=== PATIENT | male | born 1955 | race Caucasian/White ===

== ENCOUNTER 2016-10-25 23:10 | Inpatient (IN) | payer MEDICARE ==
--- NOTE | ~2016-10-25 | EKG ---
PATIENT: ALYSHA RODRIGUEZ UNIT #: [id number] Ventricular Rate: 98 BPM Atrial Rate: 98 BPM P-R Interval: 228 ms QRS Duration: 84 ms Q-T Interval: 352 ms QTC Calculation(Bezet): 449 ms P [place]: 48 degrees Calculated R [place]: -19 degrees Calculated T [place]: 35 degrees Diagnosis Line: Sinus rhythm with 1st degree A-V block Diagnosis Line: Otherwise normal ECG Diagnosis Line: When compared with ECG of 01-DEC-2013 17:52, Diagnosis Line: No significant change was found Diagnosis Line: Confirmed by JORGE ALLEN MD ([id number]) on 10/26/2016 Diagnosis Line: 11:16:15 PM INTERPRETING MD: ALEJANDRO OLSON
--- NOTE | ~2016-10-25 | CO ---
Unit #: [id number] #: [id number] Patient: ALYSHA RODRIGUEZ [id number] [place] [address] [facility]. [place], [place] [address] [id number] MR#: [id number] NAME: ALYSHA RODRIGUEZ. ROOM: 553 Age: 61 Sex: M Admission Date: 10/26/2016 : 1955 Attending Physician: Jayme Guan M.D. Primary Care Physician: Michael Spring M.D. CONSULTATION REPORT REASON FOR CONSULTATION Congestive heart failure. HISTORY OF PRESENT ILLNESS This is a 61-year-old white male, who was admitted with a complaint of abdominal discomfort. He was found to have a 2 mm right renal stone. The patient also reports shortness of breath with nonproductive cough and leg edema for the past two weeks. He also had a few episodes of "passing out spells." His details are sketchy. He is a poor historian and has been given pain medication. He has no symptoms of angina or palpitations. Because of his renal stones, he was receiving IV fluids at a high rate. He has obstructive sleep apnea and was on BiPAP at one point. He demonstrated hypoxic respiratory failure where he had low oxygen saturation levels. He is currently receiving supplemental oxygen. From a cardiac standpoint, the patient has risk factors for ischemic heart disease and includes hypertension, hyperlipidemia, diabetes, obesity, and nicotine abuse. He had a cardiac catheterization in 2005 where he was found to have mid right coronary artery diffuse stenosis up to 40%. LAD and circumflex artery was normal. He reports a history of congestive heart failure and suffered a cardiac arrest in 2012 while he was driving through [place]. 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 In 2013, he had a stress test at [facility] which was normal. PAST MEDICAL HISTORY 1. Cardiac catheterization, February 2006, at [facility] per Dr. Santana which showed LAD and circumflex arteries normal. Right coronary artery with diffuse mid vessel stenosis up to 40%. Ejection fraction of 60%. 2. Lexiscan Cardiolite stress test in 2013 at [facility] which shows no ischemia and ejection fraction of 62%. 3. Hypertension. 4. Hyperlipidemia. 5. Diabetes mellitus type 2. 6. Lung cancer. 7. LOO. 8. Obesity. 9. Restless leg syndrome. 10. Active smoker. 11. Congestive heart failure. 12. Patient reported cardiac arrest while in [place] in 2012. No details available. PAST SURGICAL HISTORY Unit #: [id number] #: [id number] Patient: ALYSHA RODRIGUEZ 1. Rotator cuff repair. 2. Cholecystectomy. 3. ERCP with sphincterotomy. SOCIAL HISTORY The patient is disabled. He lives at home alone. He smokes a half pack cigarettes daily. He quit drinking several years ago. FAMILY HISTORY Unable to obtain. ALLERGIES No known drug allergies. HOME MEDICATION Glucophage 1000 mg b.i.d. REVIEW OF SYSTEMS Unable to adequately obtain because the patient has been given IV narcotics. Please see details in the HPI. PHYSICAL EXAMINATION VITAL SIGNS: Blood pressure 144/92, heart rate 105, temperature 97.9, BMI 42. GENERAL: This is a 61-year-old obese, white male who is in no acute respiratory distress. NEUROLOGIC: He is drowsy, awakens briefly but falls back asleep. There is no definite focal weaknesses. NECK: Trachea is midline. No thyromegaly or lymphadenopathy. No jugular venous distention. HEART: S1, S2 heart sounds are normal. No murmurs. No rubs. No clicks. Regular rate and rhythm. LUNGS: Diminished both lungs. There are no rales, rhonchi, or wheezing. ABDOMEN: Soft, nontender, obese. Bowel sounds are present. EXTREMITIES: Without leg edema. SKIN: Warm and dry. DIAGNOSTIC STUDIES LABORATORY: Glucose 163, BUN 11, creatinine 1.1, sodium 137, potassium 4.2. White count 10.7, hemoglobin 15.2, hematocrit 46.9, platelet count 185,000. IMAGING: Chest x-ray pending. CARDIOVASCULAR: EKG pending. IMPRESSION 1. Acute hypoxic respiratory failure. 2. Right renal stone. 3. Probable chronic obstructive pulmonary disease. 4. Chronic questionable acute heart failure. 5. Nonobstructive coronary artery disease, per cardiac catheterization in 2005. 6. Hypertension. 7. Hyperlipidemia. 8. Diabetes mellitus type 2. 9. Obstructive sleep apnea. 10. Metabolic syndrome. Unit #: [id number] #: [id number] Patient: ALYSHA RODRIGUEZ 11. Nicotine abuse. 12. History of lung cancer. PLAN 1. Cardiology was consulted for congestive heart failure. Will check chest x-ray and BNP. 2. IV fluids have been discontinued and the patient has received one dose of IV Lasix. Will continue oral Lasix in a.m. 3. Echocardiogram for left ventricular systolic function. 4. Continue DIXIE inhibitor and start beta desmond. 5. Lipid levels and thyroid functions will be tested. 6. Other recommendations to follow. Thank you for allowing us to assist in this patient's care. Dictated by... Sami WillisRLupe for Hilda Cancino/laura TD: 10/27/2016 08:59 JOB #: [id number] CONSULTATION REPORT Page 1 of 1 X Isidoro Diaz APRN X CONSULTATION REPORT
--- NOTE | ~2016-10-25 | CO ---
Unit #: [id number] #: [id number] Patient: ALYSHA RODRIGUEZ [id number] [place], [place] [address] [id number] MR#: [id number] NAME: ALYSHA RODRIGUEZ. ROOM: 553 Age: 61 Sex: M Admission Date: 10/26/2016 : 1955 Attending Physician: Jayme Guan M.D. Primary Care Physician: Michael Spring M.D. Consultation Date: 10/27/2016 CONSULTATION REPORT REASON FOR CONSULTATION Right renal colic. HISTORY OF PRESENT ILLNESS This 61-year-old man with multiple medical problems, describes a 3-day history of severe right renal colic with nausea. It has been intermittently severe, but controlled with medications here in hospital. He has had nausea, but no vomiting. He has had no fever or chills or hematuria. He has no prior history of stone disease or urinary infection. He states that he was treated for urinary infection a week ago, but not given any antibiotics. His presenting symptom was dysuria. He describes a weak stream with some hesitancy and intermittency and other voiding symptoms also and has never been treated for prostate trouble. PAST MEDICAL HISTORY Include coronary artery disease and the record indicates that cardiac catheterization is recommended at some point. He has a history of 3 cardiac arrest in [place] and also had a history of congestive heart failure and noncompliance with cardiac recommendations. Note that, he was not taking any medications on admission to the hospital. Also, hypertension, diabetes, history of lung cancer, morbid obesity, and LOO. PAST SURGICAL HISTORY Include rotator cuff, cholecystectomy, EGD, and ERCP polypectomy. MEDICATIONS None on admission. He is currently receiving Coreg, hydralazine, Dilaudid, NovoLog, Levaquin, Zestril, Flagyl, Zofran, Protonix, and also Flomax. ALLERGIES None noted. FAMILY HISTORY Negative for stone disease. SOCIAL HISTORY He has smoked one and half packs per day typically. REVIEW OF SYSTEMS Abdominal pain, pedal edema, and otherwise as per urologic history of Unit #: [id number] #: [id number] Patient: ALYSHA RODRIGUEZ present illness. PHYSICAL EXAMINATION VITAL SIGNS: Current temperature 98.2, no fever in hospital; pulse 77; blood pressure 122/66; respirations 18; height recorded at 6 feet 2 inches; weight at 324 pounds with a BMI of 42. GENERAL: The patient is aroused from sleeping. He is very morbidly obese with multiple tattoos, uncomfortable medicated, somewhat drowsy, but responds cooperatively. Appropriate affect and mood. HEENT: Unremarkable. LUNGS: Seem clear. CARDIAC: Rate and rhythm currently regular. ABDOMEN: Large, soft, full with right CVA tenderness noted. : Phallus normal circumcised, normal glans and meatus. Testes and epididymides normal, descended. Digital exam deferred due to pain and family, relatives, and friends in the room. EXTREMITIES: No clear pitting edema currently. DIAGNOSTIC STUDIES LABORATORY RESULTS: Include BUN 11, creatinine 1.1. WBC 13.3. Admission urinalysis is normal. IMAGING STUDIES: CT scan of the abdomen and pelvis stone protocol shows a 3 mm stone in the upper right ureter with mild associated hydronephrosis. There is perhaps a 1 to 2 mm ipsilateral renal calcification of less clear significance. No other stones seen. IMPRESSION 1. The patient has a small proximal right ureteral stone, which he would like to have removed due to the severity and persistence of pain. It may possibly progress without treatment, but he would like it treated. 2. High cardiac risk has been identified and per discussion with Cardiology, surgical plans are deferred at least from this morning. PLAN We will proceed with cardiac evaluation, remain n.p.o. If cleared by Cardiology, ureteroscopy, laser lithotripsy, and stent placement can be done Sunday if still necessary, possibly even this evening with Dr. Martinez if cleared in time. Thank you for the consultation, Clara Garcia. Dictated by... Hilda Castellanos/lj TD: 10/28/2016 02:23 JOB #: [id number] CC: Clara Ling M.D. Unit #: [id number] #: [id number] Patient: ALYSHA RODRIGUEZ CONSULTATION REPORT Page 1 of 1 X Keith Michaud MD X CONSULTATION REPORT
--- NOTE | ~2016-10-25 | CO ---
Unit #: [id number] #: [id number] Patient: ALYSHA GUPTA [id number] [facility] [address] [facility]. [place], [place] [address] [id number] MR#: [id number] NAME: ALYSHA GUPTA. ROOM: 553 Age: 61 Sex: M Admission Date: 10/26/2016 : 1955 Attending Physician: Jayme Guan M.D. Primary Care Physician: Michael Spring M.D. Consultation Date: 10/28/2016 CONSULTATION REPORT REASON FOR CONSULTATION Anxiety, agitation, refusing to follow direction, mood lability, irritability, noncompliance, sad, depressed. HISTORY OF PRESENT ILLNESS Mr. Alysha Gupta is a 61-year-old white male, seen in room 553, bed 1 on 10/28/2016 at [facility]. The patient was lying in bed in a right lateral position, dressed in hospital attire; seemed agitated, mad, angry, upset, refusing to follow direction or answer question. The patient reported that he just wanted to sleep. The patient has been noncompliant with instructions in the hospital and not compliant with the medication. The patient's vital signs; temperature 97.9, pulse 83, respirations 18, blood pressure 125/65, oxygen saturation 94%. The patient was not in distress. Denied any suicidal or homicidal ideation. Denied any psychotic symptom. Denied any feeling sad, depressed, but mood was irritable, mad, angry, sad. The patient was admitted on 10/26/2016 with renal colic, uncontrolled hypertension, uncontrolled diabetes mellitus, morbid obesity. PAST PSYCHIATRIC HISTORY Unremarkable for any history of any previous treatment, inpatient or outpatient. MEDICAL HISTORY Hypertension; hyperlipidemia; AODM since 2012; history of lung cancer, diagnosed in 2012; history of DJD; cardiac catheterization, significant disease in 2005; history of cardiac arrest in [place] in 2012; EGD showing diffuse gastropathy, hiatal hernia; colonoscopy, status post 2010 polyp removal; rotator cuff repair; cholecystectomy. ALLERGIES No known drug allergies. MEDICATIONS Home medications; none. The patient is currently on Imdur, Senokot, Zestril, morphine sulfate, Lortab, aspirin, furosemide, Flomax, Coreg, Protonix, Levaquin, MiraLax. FAMILY HISTORY AND SOCIAL HISTORY The patient has a good support system. The patient denied any history of abuse. Denied any use of any drugs or alcohol. The patient's urine toxicology was positive for marijuana and opioids. REVIEW OF SYSTEMS Unit #: [id number] #: [id number] Patient: ALYSHA GUPTA Complete review of systems is remarkable for pain and anxiety. MENTAL STATUS EXAMINATION Vital signs; please see above. General appearance; the patient is morbidly obese, dressed casually in hospital attire, lying comfortably in bed, but seemed to be in pain. Attention span and concentration, poor. Speech, slow. Oriented in place and person. Mood and affect; sad and depressed. Thought process, circumstantial. Thought content; guarded, paranoid. Denied any thoughts of harming self or others. Recent and remote memory, poor. Language, intact. Fund of knowledge, fair to slightly impaired. DIAGNOSES Psychiatric: Major depressive disorder, recurrent, moderate, F33.2; cannabis abuse, moderate, F12.20; opioid use disorder, moderate, F11.20. Secondary diagnosis: Deferred. Medical diagnosis: Please refer to H and P. Stressors: Psychosocial stressor. ASSESSMENT AND PLAN 1. Supportive psychotherapy and psychoeducation provided to the patient. 2. Educated about benefits and side effects of medication and course and prognosis of illness. 3. Advised to abstain from using drugs. Advised the patient to follow up upon discharge to follow up in outpatient program at [facility]. Recommending at this time to add Cymbalta 30 mg daily to current medication regimen. We will continue to follow. Please feel free to call if any questions, telephone #[phone]. Dictated by... Hilda Nam/lj TD: 10/28/2016 21:59 JOB #: [id number] CONSULTATION REPORT Page 1 of 1 X Jorge Luis Berg MD CONSULTATION REPORT
--- NOTE | ~2016-10-25 | OR ---
Unit #: [id number] #: [id number] Patient: ALYSHA RODRIGUEZ [id number] [address] [place], [place] [address] [id number] MR#: [id number] NAME: ALYSHA RODRIGUEZ ROOM: 553 Date of Procedure: 10/27/2016 Admission Date: 10/26/2016 Surgeon: Conor Martinez M.D. : 1955 Attending Physician: Jayme Guan M.D. Primary Care Physician: Michael Spring M.D. PROCEDURE OPERATIVE NOTE PREOPERATIVE DIAGNOSIS Right ureteral stone. POSTOPERATIVE DIAGNOSIS Right ureteral stone. PROCEDURE PERFORMED 1. Cystoscopy. 2. Right retrograde pyelogram. 3. Interpretation of right retrograde pyelogram. 4. Right 6-Malian x 26 cm double-J stent placement, no string attached. SURGEON Conor Martinez M.D. ANESTHESIA General. INDICATIONS FOR PROCEDURE The patient is a pleasant but morbidly obese 61-year-old gentleman with a right proximal to mid 3 mm ureteral stone. He underwent cardiac catheterization earlier today and he was cleared by Cardiology at low to moderate risk. The risks, benefits, and alternatives including bleeding, infection, damage to adjacent structures, need for further surgery, as well as the risk of anesthesia were explained to the patient, informed consent was obtained and he wished to proceed. DESCRIPTION OF PROCEDURE The patient was taken to the operative suite and properly identified. After the application of satisfactory general anesthetic, the patient was placed in dorsal lithotomy position. All pressure points were padded to the satisfaction of surgical, anesthetic and nursing teams. His genitalia were prepped and draped in usual sterile fashion. We introduced a rigid 22-Malian cystoscope. The entire urethra was normal. The prostate was enlarged with 2+ trilobar hyperplasia with a significant median lobe. Bladder had no tumor, stones, or masses. I identified the right ureteral orifice. I passed a 0.035 Sensor wire which coiled in the right renal pelvis. This stones was not visible under fluoroscopy. I passed the Bowler catheter. I shot a right retrograde pyelogram. The interpretations were as follows. INTERPRETATION OF RIGHT RETROGRADE PYELOGRAM Unit #: [id number] #: [id number] Patient: ALYSHA RODRIGUEZ There is mild hydroureteronephrosis down to the level of the mid ureteral stone. There are no filling defects. There is a single collecting system. I removed the Bowler, passed a 6-Malian x 26 cm double-J stent which coiled in the upper pole of the kidney and into the bladder. The bladder was emptied. Scope was removed. No string was attached. Patient tolerated the procedure well without complications. He is transported stable and extubated to the PACU. PLAN The patient will undergo medical management for his cardiac disease as well as be treated for his acute diverticulitis. He will need ureteroscopy later on. Dictated by... Hilda Parikh/tal TD: 10/27/2016 20:43 JOB #: [id number] PROCEDURE OPERATIVE NOTE Page 1 of 1 X Conor Martinez MD X PROCEDURE OPERATIVE NOTE
--- NOTE | ~2016-10-25 | BMI ---
[facility] Nutrition Therapy DATE: 10/26/16 Patient: ALYSHA RODRIGUEZ Physician: ARABELLA Address: [address] [place] [address] Room/Bed: [address] [place] [address], Zip: [place] [address] Admit Date: 10/26/16 Date of : [birth year] Height: 6 2 Weight: 328 149 HIGH BMI NOTE: DX: 61 y/o male admitted with kidney stone and accelerated HTN ANTHROPOMETRICS: Ht: 74", Wt: 149 kg, BMI: 42 (Stage III obese) DIET: Full liquid/consistent carb INTERVENTION: Restricted diet, meds/fluids per MD RECOMMENDATIONS: Once medically feasible advance to consistent carb/healthy heart diet 2' PMH to promote a gradual weight loss towards a healthy BMI range. Respectfully, Corie West RD, LD [employer] [facility] [employer] cc: client file
--- NOTE | ~2016-10-25 | CR63 ---
[facility] A Service of [facility] RADIOLOGY TEXT RESULTS PATIENT: ALYSHA RODRIGUEZ LOCATION: [place] [address] : [birth year] UNIT #: [id number] AGE: [address]: Jayme Guan MD SEX: M ORDER DR: [id number] [facility] [address] [place], [place] [address] [id number] MR#: [id number] Acc #: [id number] NAME: ALYSHA RODRIGUEZ. : 1955 SEX: M STUDY DATE/TIME: 10/26/2016 16:45 UNIT: [facility] ROOM: [facility] STUDY DESCRIPTION: CR Chest 2 View Attending Physician: Jayme Guan M.D. Ordering Physician: Ed Shashi Reyes M.D. Primary Care Physician: Michael Spring M.D. MEDICAL IMAGING REPORT This report is preliminary unless electronic signature is present EXAM 2-view chest 10/26/2016 HISTORY 61-year-old male with chest pain and shortness of air beginning yesterday. COMPARISON Chest 04/10/2013 FINDINGS Frontal chest and 2 lateral views were performed. 3 total images. There is bibasilar atelectasis/infiltrate and suspected small bilateral pleural effusions. Cardiomegaly. Mediastinum and pulmonary vasculature unremarkable. No pneumothorax. IMPRESSION 1. Mild bibasilar atelectasis/infiltrate and suspected small bilateral pleural effusions. 2. Stable mild cardiomegaly. Dictated by... Marcos Kern M.D. THIS IS AN ELECTRONICALLY VERIFIED REPORT Marcos Kern M.D. at 10/30/2016 7:38 AM JAD/wyatt TD: 10/27/2016 00:48 JOB #: [id number] MEDICAL IMAGING REPORT Page 1 of 1 COPY
--- NOTE | ~2016-10-25 | HP ---
Unit #: [id number] #: [id number] Patient: ALYSHA RODRIGUEZ [id number] [place], [place] [address] [id number] I MR#: [id number] NAME: ALYSHA RODRIGUEZ. ROOM: 553 Age: 61 Sex: M Admission Date: 10/26/2016 : 1955 Attending Physician: Clara Ling M.D. Primary Care Physician: Michael Spring M.D. HISTORY AND PHYSICAL CHIEF COMPLAINT Renal colic, possible diverticulitis, uncontrolled hypertension, uncontrolled diabetes mellitus. HISTORY This 61-year-old male was out of all of his medications with a history of diabetes, hypertension, is admitted for renal colic. The patient was in his usual state of health until 5 p.m. last evening when he developed severe right flank pain radiating to the right side of the abdomen associated with nausea and vomiting. Went to [facility] emergency department where a CT scan shows a 3 mm proximal right ureteral stone with mild right hydronephrosis and mild right perinephric inflammatory stranding. Acute diverticulitis was also noted in the mid to distal sigmoid colon. The patient was given Flagyl, ciprofloxacin, Toradol, Zofran, hydrocodone. States that he was in quite a bit of pain at the time of his discharge from the ER. Was given prescription for Flomax, antibiotics, Lortab. Presented to this emergency department late last evening where he was in fairly severe pain. His Accu-Chek was 358. He has a systolic blood pressure of 190. PAST MEDICAL HISTORY 1. Hypertension. 2. Hyperlipidemia. 3. AODM since 2012. 4. Reported history of lung cancer, diagnosed in 2012 although patient has undergone treatment. 5. LOO. 6. DJD. 7. Cardiac catheterization without significant disease in 2005, and was, in fact, would be a normal stress test in 2010. 8. Patient states he did have a cardiac arrest in [place] in 2012 and had a history of congestive heart failure. 9. EGD showing diffuse gastropathy, small hiatal hernia. 10. Colonoscopy, status post polypectomy in 2010. 11. Rotator cuff repair. 12. Cholecystectomy. 13. ERCP and sphincterotomy. ALLERGIES No known drug allergies. HOME MEDICATIONS None. Unit #: [id number] #: [id number] Patient: ALYSHA RODRIGUEZ FAMILY HISTORY Negative for kidney stones. SOCIAL HISTORY The patient lives alone. He smokes one half pack per day of tobacco, does not drink alcohol. REVIEW OF SYSTEMS Notable for abdominal pain, CAD, CHF, hypertension, hyperlipidemia, LOO, DJD, gastritis, polyps removed, above mentioned surgeries. All other systems were reviewed and are negative. PHYSICAL EXAMINATION GENERAL APPEARANCE: Uncomfortable appearing 61-year-old, morbidly obese male. VITAL SIGNS: Temperature 97.4, pulse 84, respirations 22, blood pressure 189/105. O2 saturation 95% on room air. HEENT: Eyes PERRLA. Extraocular muscles are intact. Pharynx - dry mucosal membranes. NECK: Supple without adenopathy or thyromegaly. CHEST: Clear. CARDIAC: Normal S1 and S2 without S3, S4 or murmur. BACK: With right CVA percussion tenderness. ABDOMEN: Obese. Tender mainly epigastric/right upper quadrant but abdomen is soft without rebound or guarding. EXTREMITIES: Without clubbing, cyanosis or edema. Pedal pulses are present. No ulcers on the feet. NEUROLOGIC: The patient is awake, alert, oriented. Cranial nerves are intact. He has equal strength throughout. DIAGNOSTIC STUDIES LABORATORY: Admission labs - hematocrit is 47.1, white blood count is 11.7, normal platelet count. SMA-12 - glucose is 440, sodium 134, alkaline phos. is 98. Urinalysis was negative. IMAGING: CT scan - 3 mm proximal right ureteral stone at the level of the L4 vertebral body producing mild right sided hydronephrosis and mild right perinephric inflammatory stranding, acute diverticulitis of the mid to distal sigmoid colon without perforation or abscess. Hepatic steatosis. Punctate, less than 2 mm, nonobstructing right intrarenal stone. ASSESSMENT 1. Renal colic with a 3 mm right UPJ stone. 2. Possible acute sigmoid diverticulitis although this may be an over-read. 3. Essential hypertension which is uncontrolled. 4. Uncontrolled type 2 diabetes mellitus. 5. Hyperlipidemia. 6. Gastritis. 7. Questionable history of CHF and CAD. 8. Reported history of lung cancer diagnosed in 2012 without treatment. 9. Patient is out of all of his medications. PLANS Unit #: [id number] #: [id number] Patient: ALYSHA RODRIGUEZ 1. IV fluids and supportive treatment. 2. Strain urine. Will give Flomax. If not improving, will ask urology to see. 3. Blood pressure control. 4. Diabetic control. 5. Proton pump inhibitor. 6. Antibiotics. 7. SCDs for DVT prophylaxis. Dictated by Hilda Freed/df TD: 10/26/2016 05:15 JOB #: [id number] HISTORY AND PHYSICAL Page 1 of 1 X Clara Ling MD HISTORY AND PHYSICAL
[~2016-10-25 23:10] MED LIST: BENZONATATE PO; BP MED; EXCEDRIN MIGRAI1 TA1 PO; GLUCOPHAGE500 MG PO; METFORMIN HCL1000 M2; OMEPRAZOLE40 MG PO; PERCOCET7.5 PO; PROTONIX PO; XANAX0.5 MG PO; ZITHROMAX1 G/PKT PO
[2016-10-26] MEDS ORDERED: METFORMIN PO (02:27)
[2016-10-26 08:58] LABS: HEMATOCRIT 46.9 % (38.0-50.0); HEMOGLOBIN 15.2 gm/dL (13.0-16.0); MEAN CELL VOLUME 84.9 FL (83-96); MEAN CORPUSCULAR HEMOGLOBIN 27.6 PG (28-34); MEAN CORPUSCULAR HGB CONC 32.5 g/dL (30-36); MEAN PLATELET VOLUME 8.7 FL (6.5-11.5); RED BLOOD COUNT 5.53 X10e (3.90-5.60); RED CELL DISTRIBUTION WIDTH 13.7 % (11.0-15.5); WHITE BLOOD COUNT 10.7 X10e3 (4.0-10.5)
[2016-10-26 09:12] LABS: PARTIAL THROMBOPLASTIN TIME 27.1 SECONDS (23.5-31.3); PROTHROMBIN TIME (PATIENT) 10.7 SECONDS (9.6-11.5)
[2016-10-26 09:26] LABS: CREATININE SERUM 1.1 mg/dL (0.6-1.4); GLOM FILT RATE Estimated 73.1 mL/min (>60); POTASSIUM 4.2 mmol/L (3.5-5.1)
[2016-10-27 06:46] LABS: HEMOGLOBIN 14.3 gm/dL (13.0-16.0); MEAN CORPUSCULAR HEMOGLOBIN 27.6 PG (28-34); MEAN CORPUSCULAR HGB CONC 32.5 g/dL (30-36); MEAN PLATELET VOLUME 9.3 FL (6.5-11.5); RED BLOOD COUNT 5.18 X10e (3.90-5.60); RED CELL DISTRIBUTION WIDTH 13.8 % (11.0-15.5); WHITE BLOOD COUNT 13.3 X10e3 (4.0-10.5)
[2016-10-27 08:03] LABS: BUN/CREATININE RATIO 10.9; CALCIUM SERUM 8.1 mg/dL (8.4-10.2); CREATININE SERUM 1.1 mg/dL (0.6-1.4); GLOM FILT RATE Estimated 73.1 mL/min (>60); POTASSIUM 4.2 mmol/L (3.5-5.1)
[2016-10-28 07:04] LABS: BASOPHIL# 0.1 X10e3 (0-0.3); BASOPHIL% 0.5 % (0-2.5); EOSINOPHIL# 0.1 X10e3 (0-0.7); EOSINOPHIL% 0.9 % (0.0-7.0); HEMATOCRIT 41.4 % (38.0-50.0); HEMOGLOBIN 13.4 gm/dL (13.0-16.0); LYMPHOCYTE# 2.3 X10e3 (1.0-3.5); LYMPHOCYTE% 19.4 % (17.0-45.0); MEAN CELL VOLUME 85.3 FL (83-96); MEAN CORPUSCULAR HEMOGLOBIN 27.7 PG (28-34); MEAN CORPUSCULAR HGB CONC 32.4 g/dL (30-36); MEAN PLATELET VOLUME 9.6 FL (6.5-11.5); MONOCYTE% 8.8 % (3.0-12.0); NEUTROPHIL# 8.4 X10e3 (1.5-7.1); NEUTROPHIL% 70.4 % (40-75); PLATELET COUNT 194 X10e3 (140-420); RED BLOOD COUNT 4.85 X10e (3.90-5.60); RED CELL DISTRIBUTION WIDTH 13.6 % (11.0-15.5); WHITE BLOOD COUNT 11.9 X10e3 (4.0-10.5)
[2016-10-28 07:06] LABS: DIFF IND NO
[2016-10-28 07:44] LABS: CALCIUM SERUM 7.8 mg/dL (8.4-10.2); POTASSIUM 4.2 mmol/L (3.5-5.1)
[2016-11-17] MEDS ORDERED: GLIPIZIDE10 MG PO (09:59)
== END 2016-10-28 21:58 | disposition left against medical advice (07) | DRG 693 ==
LOC: CED 23:10 → CEDOF 10-26 01:00 → C5B 10-26 02:07 → CEDOF 10-26 02:07 → C5B 10-26 08:29
PROVIDERS: Internal Medicine; Nurse Practitioner; Urology
PROC: 4A023N7 Measurement of Cardiac Sampling and Pressure, Left Heart, Percutaneous Approach (ICD-10-PCS; 2016-10-27)
PROC: B215YZZ Fluoroscopy of Left Heart using Other Contrast (ICD-10-PCS; 2016-10-27)
PROC: B211YZZ Fluoroscopy of Multiple Coronary Arteries using Other Contrast (ICD-10-PCS; 2016-10-27)
PROC: B24BZZZ Ultrasonography of Heart with Aorta (ICD-10-PCS; 2016-10-27)
PROC: BT1DYZZ Fluoroscopy of Right Kidney, Ureter and Bladder using Other Contrast (ICD-10-PCS; principal; 2016-10-27 18:00)
PROC: 0T768DZ Dilation of Right Ureter with Intraluminal Device, Via Natural or Artificial Opening Endoscopic (ICD-10-PCS; 2016-10-27 18:00)
DX: N20.1 Calculus of ureter (principal); J96.01 Acute respiratory failure with hypoxia; E88.81 Metabolic syndrome and other insulin resistance; E11.65 Type 2 diabetes mellitus with hyperglycemia; F33.1 Major depressive disorder, recurrent, moderate; F11.20 Opioid dependence, uncomplicated; K57.32 Diverticulitis of large intestine without perforation or abscess without bleeding; K21.9 Gastro-esophageal reflux disease without esophagitis; I10 Essential (primary) hypertension; E78.5 Hyperlipidemia, unspecified; E66.9 Obesity, unspecified; F17.210 Nicotine dependence, cigarettes, uncomplicated; G47.33 Obstructive sleep apnea (adult) (pediatric); Z85.118 Personal history of other malignant neoplasm of bronchus and lung; K75.81 Nonalcoholic steatohepatitis (NASH); G25.81 Restless legs syndrome; I50.9 Heart failure, unspecified; J44.9 Chronic obstructive pulmonary disease, unspecified; M19.90 Unspecified osteoarthritis, unspecified site; N20.0 Calculus of kidney; K29.70 Gastritis, unspecified, without bleeding; E66.01 Morbid (severe) obesity due to excess calories; F41.9 Anxiety disorder, unspecified; F12.20 Cannabis dependence, uncomplicated
CPT/HCPCS: 36415; 71020; 74176; 80048; 80061; 80076; 81003; 82947; 83880; 84443; 85025; 85027; 85610; 85730; 93005; 93306; 94660; 94760; 96374; 96375; 99284; 99285; C1769; C1887; C1894; C2617; J1170; J1644; J1815; J1885; J1940; J1956; J2250; J2270; J2405; J3010

== ENCOUNTER → 2016-11-17 | Day surgery (SDC) | payer OTHER ==
[~2016-11-17] MED LIST changes: +GLIPIZIDE10 MG PO; +METFORMIN PO
--- NOTE | ~2016-11-17 | OR ---
Unit #: [id number] #: [id number] Patient: ALYSHA GUPTA [id number] [address] [place], [place] [address] [id number] O MR#: [id number] NAME: ALYSHA GUPTA. ROOM: Date of Procedure: 11/17/2016 Admission Date: 11/17/2016 Surgeon: Conor Martinez M.D. : 1955 Attending Physician: Conor Martinez M.D. Primary Care Physician: Michael Spring M.D. PROCEDURE OPERATIVE NOTE PREOPERATIVE DIAGNOSIS Right ureteral calculus. POSTOPERATIVE DIAGNOSIS Right ureteral calculus. PROCEDURES PERFORMED 1. Cystoscopy. 2. Right ureteroscopy. 3. Laser lithotripsy. 4. Right retrograde pyelogram. 5. Interpretation of right retrograde pyelogram. 6. Right 6 Polish x 26 cm double J stent. ANESTHESIA General. INDICATION FOR PROCEDURE Mr. Gupta is a pleasant 61-year-old gentleman with a right proximal ureteral stone. He has previously undergone stent placement. The risks, benefits and alternatives, including bleeding, infection, damage to adjacent structures, need for further surgery, as well as the risks of anesthesia, were explained to the patient. Informed consent was obtained. He wished to proceed. DESCRIPTION OF PROCEDURE The patient was taken to the operating suite and properly identified. After the application of satisfactory general anesthetic, the patient was placed in the dorsal lithotomy position. His genitalia were prepped and draped in the usual sterile fashion. I introduced a rigid 22 Polish cystoscope. I grasped the double J stent and brought it out the meatus. I passed a 0.035 Sensor wire, which coiled in the renal pelvis. I passed a dual-lumen catheter and a second wire. I passed a flexible ureteroscope over the stent. I encountered the stone in the mid ureter. I used a 200 micron holmium laser fibers on settings of 0.6 joules and 6 Hz. It was a hard stone. I eventually had to increase to 1 joule and 10 Hz. The stone fragmented well. Fragments actually migrated to the distal ureter, so I switched to the semirigid ureteroscope. I removed all stone fragments. I shot a retrograde pyelogram. The findings were as follows. Interpretation of right retrograde pyelogram: There was no hydronephrosis. There was a single collecting system. There was prompt drainage. Unit #: [id number] #: [id number] Patient: ALYSHA GUPTA I passed a 6 Polish x 26 cm double-J stent, which coiled in the renal pelvis and the bladder. A string was attached. The patient tolerated the procedure well without complications. He was transported stable and extubated in the PACU. PLAN The plan will be for the patient to follow up in 7-10 days for stent removal. He does have a string. No x-rays were required. Dictated by... Hilda Parikh/theodore TD: 11/17/2016 14:45 JOB #: [id number] PROCEDURE OPERATIVE NOTE Page 1 of 1 X Conor Martinez MD X PROCEDURE OPERATIVE NOTE
[2016-11-17 11:23] LABS: BUN/CREATININE RATIO 17.5; CREATININE SERUM 0.8 mg/dL (0.6-1.4); GLOM FILT RATE Estimated 97.8 mL/min (>60); POTASSIUM 4.4 mmol/L (3.5-5.1)
== END | disposition home or self-care (01) ==
LOC: CSUR 09:06
PROVIDERS: Urology
DX: N20.1 Calculus of ureter (principal); I25.10 Atherosclerotic heart disease of native coronary artery without angina pectoris; I25.2 Old myocardial infarction; J44.9 Chronic obstructive pulmonary disease, unspecified; K21.9 Gastro-esophageal reflux disease without esophagitis; E11.65 Type 2 diabetes mellitus with hyperglycemia; E66.01 Morbid (severe) obesity due to excess calories; I50.9 Heart failure, unspecified; G47.30 Sleep apnea, unspecified; F17.210 Nicotine dependence, cigarettes, uncomplicated; Z68.41 Body mass index [BMI] 40.0-44.9, adult; Z87.442 Personal history of urinary calculi; Z85.828 Personal history of other malignant neoplasm of skin; Z79.84 Long term (current) use of oral hypoglycemic drugs; Z90.49 Acquired absence of other specified parts of digestive tract; Z98.890 Other specified postprocedural states
CPT/HCPCS: 80048; 82947; 88300; C1758; C2617; J0330; J0690; J1170; J1815; J1885; J2250; J2370; J3010